=== PATIENT | female | born 1940 | race Caucasian/White ===

== ENCOUNTER 2017-12-12 16:55 | Inpatient (IN) | payer MEDICARE, OTHER ==
[~2017-12-12] VITALS: Ht 149.9 cm; Wt 49.1 kg
--- NOTE | ~2017-12-12 | PN ---
PATIENT:MARTELL SLOAN MEDICAL RECORD: [id number] LOCATION:MI[facility] Rodriguez112 ADMISSION DATE: 12/13/17 PROGRESS NOTE DATE OF SERVICE: 12/16/2017 SUBJECTIVE: The patient's case was discussed with staff. She has no new complaint. OBJECTIVE: The patient denies intent to harm herself or others. She is calmer today. She did agree to sign in voluntarily. She insists she would not hurt herself. ASSESSMENT: No change in diagnoses. PLAN: Brief supportive and educational interventions were made. The patient now says she does not want to go to a penitentiary or an assisted living center nor does she want that for her . I have explained to her that it does not look as though there any additional services that she can receive at home, but she says that she will manage somehow. I am going to reduce her dose of Klonopin to 0.25 mg 3 times daily. Her long-term prognosis is guarded. TRANSINT:[id number] Voice Confirmation ID: [id number] DOCUMENT ID: [id number] EFFIE FISH MD at 1034 CC: [id number] DICTATION DATE: 12/16/17 1407 SENIOR PROCESS ENGINEER: 12/16/17 2137 ADM IN [place] [place] [address]
--- NOTE | ~2017-12-12 | PN ---
PATIENT:MARTELL SLOAN MEDICAL RECORD: [id number] LOCATION:MIKE RamonBryan112 ADMISSION DATE: 12/13/17 PROGRESS NOTE DATE OF SERVICE: 12/14/2017 SUBJECTIVE: The patient's case was discussed with staff. She has no new complaint. OBJECTIVE: The patient denies intent to harm herself or others. She generally tolerates her medicines well. She is significantly calmer from yesterday, but still shows significant depression. ASSESSMENT: No change in diagnoses. PLAN: Adjustments will be made in her antidepressant medication. Supportive and educational interventions were made. I would like Dr. Cady Sanford to test her. She does not show significant signs of cognitive impairment, but an early dementia may well be present and a contributing factor to this and the best way to identify would be through psychometric testing. TRANSINT:[id number] Voice Confirmation ID: [id number] DOCUMENT ID: [id number] EFFIE FISH MD at 1450 CC: [id number] DICTATION DATE: 12/14/17 1025 MATCHBOOK MAKER: 12/14/17 1057 ADM IN [facility] [address] [place] [address]
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
--- NOTE | ~2017-12-12 | PN ---
PATIENT:MARTELL SLOAN MEDICAL RECORD: [id number] LOCATION:MIKE Rodriguez112 ADMISSION DATE: 12/13/17 PROGRESS NOTE DATE OF SERVICE: 12/17/2017 SUBJECTIVE: The patient's case was discussed with staff. She has no new complaint. OBJECTIVE: The patient denies intent to harm herself or others. She generally tolerates her medicines well. Eye contact is poor. Concentration is poor. ASSESSMENT: No change in diagnoses. PLAN: The patient has no thoughts of harming herself or others. She is tolerating her medicines well. I anticipate that she can be transitioned out of the hospital soon. TRANSINT:[id number] Voice Confirmation ID: [id number] DOCUMENT ID: [id number] EFFIE FISH MD at 1354 CC: [id number] DICTATION DATE: 12/17/17 1045 CLINICAL FACULTY: 12/17/17 1241 ADM IN [address] [id number] [place] [address]
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
--- NOTE | ~2017-12-12 | PN ---
PATIENT:MARTELL SLOAN MEDICAL RECORD: [id number] LOCATION:MIKE Rodriguez112 ADMISSION DATE: 12/13/17 PROGRESS NOTE DATE OF SERVICE: 12/19/2017 SUBJECTIVE: The patient's case was discussed with staff. She has no new complaint. OBJECTIVE: The patient is in good behavioral control with limited insight about her condition. She tolerates her medicines well. ASSESSMENT: No change in diagnoses. PLAN: The patient will be transitioned out of the hospital soon. Her long-term prognosis is guarded. She is going to be referred to the outpatient behavioral program at [facility]. TRANSINT:[id number] Voice Confirmation ID: [id number] DOCUMENT ID: [id number] EFFIE FISH MD at 1659 CC: [id number] DICTATION DATE: 12/19/17 1432 SHOP SUPERVISOR: 12/19/17 1441 DIS IN 12/20/17 [id number] [place] [address]
--- NOTE | ~2017-12-12 | PN ---
PATIENT:MARTELL SLOAN MEDICAL RECORD: [id number] LOCATION:MIKE Rodriguez112 ADMISSION DATE: 12/13/17 PROGRESS NOTE DATE OF SERVICE: 12/15/2017 SUBJECTIVE: The patient's case was discussed with staff. She has no new complaint. OBJECTIVE: The patient is in good behavioral control, but tells me that she does not want to go to court Monday and that she will sign in voluntarily. I make it clear to her that the court proceedings can be reinstituted at any time and that it would be my estimation that she would be here 5 or 6 days more. She is agreeable to this, although after talking about it she starts to cry. She is not eating very well. I have discussed lack of appetite with her. She says she will try to do better, but it may be necessary to prescribe Colace. In addition to this, she is denying any intent to harm herself or others and is very much interested in going to assisted living with her . ASSESSMENT: Current diagnoses plus Alzheimer dementia. PLAN: The patient was tested by Dr. Cady Sanford and actually scored worse than I would have anticipated. Her score was 21/30. Given her physical limitations, the impairment that she has cognitively and the fact that she has been asked to care for her disabled who has dementia, I think it is completely inappropriate for her to be at home with her or better stated I think it is inappropriate for her to not have some kind of assistance. It would appear the least restrictive environment would be assisted living and even though she and the do not get along and argue and bicker quite a bit, they have been for 60 years and she says she wants to stay with him and as far as I know he still wants to stay with her. Assisted living would seem like a reasonable option for them at this time and she is agreeable to it. Based on my interactions with her and the testing, I do indeed think she has the dementia and I am going to start her on Aricept. TRANSINT:[id number] Voice Confirmation ID: [id number] DOCUMENT ID: [id number] EFFIE FISH MD at 1008 CC: [id number] DICTATION DATE: 12/15/17 1514 VIDEO PRESENTATION OPERATOR: 12/15/17 1541 ADM IN [facility] [address] [place] [address]
[2017-12-12] MEDS ORDERED: CELEXA20 MG PO (17:26)
[2017-12-12] MEDS ORDERED: ATIVAN2 MG PO (17:26)
[2017-12-12] MEDS ORDERED: TRAZODONE HCL50 MG PO (17:26)
[2017-12-12] MEDS ORDERED: NORVASC5 MG PO (17:27)
[2017-12-12 21:30] LABS: BASOPHILS 0.6 % (0-2); EOSINOPHILS 4.3 % (0-7); HEMATOCRIT 35.3 % (36.0-48.0); HEMOGLOBIN 11.6 g/dL (12-16); IMMATURE GRANULOCYTES 0.2 % (0-5); LYMPHOCYTES 25.5 % (15-50); MCHC 32.9 g/dL (31.0-37.0); MCV 88.3 fL (80.0-100.0); MEAN PLATELET VOLUME 10.3 fL (7.4-10.4); MONOCYTES 9.8 % (2-11); NEUTROPHILS 59.6 % (40-80); PLATELET COUNT 325 10x3/uL (130-400); RDW 13.7 % (11.5-14.5); WBC 8.9 10x3/uL (4.8-10.8)
[2017-12-12 22:12] LABS: ALBUMIN 3.8 g/dL (3.4-5.0); ANION GAP 12.7 mmol/L (8-16); BILIRUBIN - TOTAL 0.37 mg/dL (0.2-1.3); CARBON DIOXIDE 27.9 mmol/L (21.0-32.0); CREATININE - SERUM 0.8 mg/dL (0.6-1.3); POTASSIUM - SERUM 3.6 mmol/L (3.5-5.1)
[2017-12-12 22:35] LABS: APPEARANCE HAZY (CLEAR); BILIRUBIN NEGATIVE (NEGATIVE); COLOR YELLOW (YELLOW); GLUCOSE NEGATIVE (NEGATIVE); KETONE NEGATIVE (NEGATIVE); NITRITE NEGATIVE (NEGATIVE); PROTEIN TRACE mg/dL (NEGATIVE); SPECIFIC GRAVITY 1.025 (1.005-1.020); UROBILINOGEN NORMAL (NORMAL)
[2017-12-12 22:40] LABS: BACTERIA MANY /hpf (NONE SEEN); EPITHELIAL CELLS 0-5 /hpf (0-5); RED CELLS - URINE 25-50 /hpf (0-5); WHITE CELLS - URINE 25-50 /hpf (0-5)
[2017-12-12 22:53] LABS: UDS - AMPHET NEGATIVE QUAL (NEGATIVE); UDS - BARB NEGATIVE QUAL (NEGATIVE); UDS - BENZO NEGATIVE QUAL (NEGATIVE); UDS - COCAINE NEGATIVE QUAL (NEGATIVE); UDS - OPIATE NEGATIVE QUAL (NEGATIVE); UDS - PCP NEGATIVE QUAL (NEGATIVE); UDS - THC NEGATIVE QUAL (NEGATIVE)
[2017-12-13] MEDS ORDERED: TESSALON PERLE100 MG PO (01:32)
[2017-12-13 05:28] VITALS: BP 167/77
[2017-12-13 06:20] VITALS: BP 167/77; BMI 21.8
[2017-12-13 07:45] LABS: CHOL - HDL RATIO 2.7 ratio (2.3-4.1); LDL-HDL RATIO 1.6 ratio (1.5-3.5)
[2017-12-13 10:56] VITALS: BP 138/74
[2017-12-13 11:01] VITALS: BP 124/78
[2017-12-13 13:43] VITALS: BMI 21.8
[2017-12-13] MEDS ORDERED: BENZONATATE200 MG PO (17:04)
[2017-12-13 20:25] VITALS: BP 114/64
[2017-12-14 07:32] LABS: RAPID PLASMA REAGIN Non Reactive (Non Reactive)
[2017-12-14 08:24] LABS: FOLATE (FOLIC ACID) - SERUM 9.7 ng/mL (>3.0)
[2017-12-14 09:19] LABS: VITAMIN D 25 HYDROXY 22.3 ng/mL (30.0-100.0)
[2017-12-14 09:45] VITALS: BP 131/69
[2017-12-14 19:56] VITALS: BP 143/80
[2017-12-15 09:42] VITALS: BP 104/70
[2017-12-15 10:40] VITALS: Ht 149.9 cm; Wt 49.1 kg
[2017-12-15 19:39] VITALS: BP 135/81
[2017-12-16 08:00] VITALS: BP 113/68
[2017-12-16 09:56] VITALS: BP 154/64
[2017-12-16 20:00] VITALS: BP 113/68
[2017-12-17 10:13] VITALS: BP 137/67
[2017-12-17 20:41] VITALS: BP 142/94
[2017-12-18 08:00] VITALS: BP 141/74
[2017-12-18 21:06] VITALS: BP 153/78
[2017-12-19 08:12] VITALS: BP 151/83
[2017-12-19] MEDS ORDERED: ARICEPT5 MG PO (14:33)
[2017-12-19] MEDS ORDERED: LIDODERM 5 %1 PATCH TRANSDERM (14:34)
[2017-12-19] MEDS ORDERED: LEXAPRO10 MG PO (14:34)
[2017-12-19] MEDS ORDERED: FLORAJEN3 CAPS460 MG PO (14:34)
[2017-12-19 20:41] VITALS: BP 160/89
[2017-12-20 08:19] VITALS: BP 154/91
== END 2017-12-20 11:34 | disposition home or self-care (01) | DRG 885 ==
LOC: D.ER 16:55 → D.PSYCH 12-13 00:32
PROVIDERS: Family Medicine; Psychiatry & Neurology Psychiatry
DX: F33.1 Major depressive disorder, recurrent, moderate (principal); R45.851 Suicidal ideations; N39.0 Urinary tract infection, site not specified; I25.10 Atherosclerotic heart disease of native coronary artery without angina pectoris; I11.0 Hypertensive heart disease with heart failure; I50.9 Heart failure, unspecified; G89.29 Other chronic pain; M54.9 Dorsalgia, unspecified; M06.9 Rheumatoid arthritis, unspecified; I48.2 Chronic atrial fibrillation; E78.5 Hyperlipidemia, unspecified

== ENCOUNTER 2018-09-24 08:40 | Day surgery (SDC) | payer MEDICARE, OTHER ==
[~2018-09-24] VITALS: Ht 149.9 cm; Wt 50.0 kg
[~2018-09-24 08:40] MED LIST: ARICEPT5 MG PO; ATIVAN2 MG PO; BENZONATATE200 MG PO; CELEXA20 MG PO; FLORAJEN3 CAPS460 MG PO; LEXAPRO10 MG PO; LIDODERM 5 %1 PATCH TRANSDERM; NORVASC5 MG PO; TESSALON PERLE100 MG PO; TRAZODONE HCL50 MG PO
[2018-09-24 09:43] LABS: HEMATOCRIT 33.5 % (36.0-48.0); HEMOGLOBIN 9.6 g/dL (12-16); MCH 20.2 pg (26.0-34.0); MCHC 28.7 g/dL (31.0-37.0); MCV 70.5 fL (80.0-100.0); PLATELET COUNT 290 10x3/uL (130-400); RBC 4.75 10x6/uL (4.00-5.40); WBC 8.6 10x3/uL (4.8-10.8)
[2018-09-24] MEDS ORDERED: GABAPENTIN100 MG PO (09:43)
[2018-09-24] MEDS ORDERED: FUROSEMIDE20 MG PO (09:44)
[2018-09-24 09:57] VITALS: BP 152/77; Ht 149.9 cm; Wt 50.0 kg
[2018-09-24 10:16] LABS: ANISOCYTOSIS OCC; HYPOCHROMASIA 1+; PLATELET ESTIMATE NORMAL; POIKILOCYTOSIS OCC; ROULEAUX OCC; SMUDGE CELLS OCC
--- NOTE | 2018-09-24 16:44 | OP ---
PATIENT NAME: MARTELL SLOAN MEDICAL RECORD: [id number] :36 LOCATION:DBryanOPS ADMISSION DATE: SURGEON: AIRAM CASTILLO DO DATE OF OPERATION: 09/24/2018 PROCEDURE: Colonoscopy with endoscopic mucosal resection, polypectomy. INDICATIONS FOR PROCEDURE: Iron deficiency anemia, change in bowel habits with chronic constipation, hematochezia. SCOPE: Olympus video pediatric colonoscope. MEDICATIONS: Propofol 490 mg IV per anesthesia. WITHDRAWAL TIME: 48 minutes. ESTIMATED BLOOD LOSS: Minimal. COMPLICATIONS: None. FINDINGS: Informed consent was given. The patient was made comfortable with the above medication. After reaching an adequate level of sedation by slow IV push, the patient was placed on her left side. A digital rectal examination was performed and was normal. The endoscope was advanced under direct visualization through the rectum to the cecum, confirmed by the presence of the appendiceal orifice and ileocecal valve. The endoscope was slowly withdrawn and mucosa was carefully examined. The prep quality was good. There was evidence of moderate diverticulosis involving the descending and sigmoid colon. There was a single, large polyp that measured approximately 2 to 2.5 cm in diameter located in the rectum (approximately 5-7 cm from the anal verge). It was a mixed polyp with areas that were raised and sessile, and other areas that were flat or depressed. Endoscopic mucosal resection technique was utilized using Eleview to lift the polyp off the wall of the colon successfully. Following this, a hot snare was used to resect the polyp in piecemeal fashion. Hot forceps were then used to clean any residual appearing tissue and remove what could be seen. The perimeter of the polyp site was burned and 3 endoclips were used to position the tissue closed to lower her risk of complications post discharge. Retroflexion was performed in the rectum with visualization of grade I internal hemorrhoids. The patient did also have some external hemorrhoids on digital exam. The endoscope was completely withdrawn from the patient. The patient tolerated the procedure well and there were no complications. IMPRESSION: 1. Moderate diverticulosis of the descending sigmoid colon. 2. A single large polyp as described above, removed using EMR technique and endoclipped times 3. 3. Internal and external hemorrhoids without active bleeding. PLAN AND RECOMMENDATIONS: 1. Discharge home when recovery parameters are met. 2. Follow up biopsy specimen results. 3. High fiber diet. 4. Continue current medications. 5. I would recommend a repeat in 3-6 months to further clean up any residual OPERATIVE REPORT [id number] SHAYLEE SLOANEEN A polypoid tissue if present and to take more biopsies. The patient has stated that she will not undergo another colonoscopy, but this would be my recommendation. TRANSINT:[id number] Voice Confirmation ID: [id number] DOCUMENT ID: [id number] AIRAM CASTILLO DO at 1644 CC: [id number] DICTATION DATE: 09/24/18 1122 BOX TOE MAKER: 09/24/18 1338 [facility] 09/24/18 [facility] [address] [place] [address]
== END 2018-09-24 12:55 | disposition home or self-care (01) ==
LOC: D.OPS 08:40
PROVIDERS: Anesthesiology; ATTEND Internal Medicine Gastroenterology
DX: K57.30 Diverticulosis of large intestine without perforation or abscess without bleeding (principal); D12.8 Benign neoplasm of rectum; K64.0 First degree hemorrhoids; K64.4 Residual hemorrhoidal skin tags; K59.09 Other constipation; Z01.812 Encounter for preprocedural laboratory examination

== ENCOUNTER 2018-12-24 07:58 | Day surgery (SDC) | payer MEDICARE, OTHER ==
[~2018-12-24] VITALS: Ht 149.9 cm; Wt 50.0 kg
[~2018-12-24 07:58] MED LIST changes: +FUROSEMIDE20 MG PO; +GABAPENTIN100 MG PO
[2018-12-24 08:23] LABS: BASOPHILS 0.7 % (0-2); EOSINOPHILS 4.5 % (0-7); HEMATOCRIT 36.1 % (36.0-48.0); HEMOGLOBIN 12.1 g/dL (12-16); IMMATURE GRANULOCYTES 0.1 % (0-5); MCH 29.2 pg (26.0-34.0); MCHC 33.5 g/dL (31.0-37.0); MCV 87.2 fL (80.0-100.0); MEAN PLATELET VOLUME 9.4 fL (7.4-10.4); MONOCYTES 12.1 % (2-11); NEUTROPHILS 63.6 % (40-80); PLATELET COUNT 285 10x3/uL (130-400); RBC 4.14 10x6/uL (4.00-5.40); WBC 7.4 10x3/uL (4.8-10.8)
[2018-12-24 08:37] LABS: ANION GAP 14.1 mmol/L (8-16); CALCIUM 9.4 mg/dL (8.5-10.1); CARBON DIOXIDE 27.3 mmol/L (21.0-32.0); CREATININE - SERUM 0.8 mg/dL (0.6-1.3); POTASSIUM - SERUM 3.4 mmol/L (3.5-5.1)
[2018-12-24 09:06] VITALS: BP 173/88; Ht 149.9 cm; Wt 50.0 kg
--- NOTE | 2018-12-24 10:57 | NUR ---
DC INSTRUCTIONS GIVEN TO PT/FAMILY. STATE UNDERSTANDING. DC'D IV CATH FULLY INTACT.
--- NOTE | 2018-12-24 11:19 | NUR ---
PT LEFT UNIT VIA WC AT 1114
--- NOTE | 2018-12-25 15:18 | OP ---
PATIENT NAME: MARTELL SLOAN MEDICAL RECORD: [id number] :36 LOCATION:DLIZBETH ADMISSION DATE: SURGEON: AIRAM CASTILLO DO DATE OF OPERATION: 12/24/2018 PROCEDURE: Flexible sigmoidoscopy with biopsies. INDICATIONS FOR PROCEDURE: Reevaluation of a tubulovillous adenoma in the rectum. The patient's last colonoscopy was approximately 3 months ago. SCOPE: Olympus video pediatric colonoscope. MEDICATIONS: Propofol 150 mg IV per anesthesia. ESTIMATED BLOOD LOSS: Minimal. COMPLICATIONS: None. FINDINGS: Informed consent was given. The patient was made comfortable with the above medication. After reaching an adequate level of sedation by slow IV push, the patient was placed on her left side. A digital rectal examination was performed and was normal. The endoscope was then advanced under direct visualization through the rectum to the descending colon. The endoscope was slowly withdrawn and the mucosa was carefully examined. Prep quality was poor. The patient did have mild diverticulosis involving the descending and sigmoid colon. There were no polyps visualized. The previous polyp site was located in the rectum. There was still a single endoclip connected to that tissue. There was no residual polypoid tissue. There did appear to be some granulation reaction at the site of the tip of the endoclip that is still present. Two cold forceps biopsies were taken from that site. Retroflexion was performed in the rectum with visualization of grade I internal hemorrhoids without active bleeding. The endoscope was withdrawn from the patient. The patient tolerated the procedure well and there were no complications. IMPRESSION: 1. 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 Biopsies taken, but felt to be granulation tissue related to endoclip, which is still in place. 2. Grade I internal hemorrhoids without bleeding. 3. Mild diverticulosis of the descending and sigmoid colon. 4. Poor prep. PLAN AND RECOMMENDATIONS: 1. Discharge home when recovery parameters are met. 2. Follow up biopsy specimen results. 3. High fiber diet. 4. Continue current medications. 5. No further colonoscopies are necessary based on the patient's age, unless symptoms warrant evaluation. TRANSINT:[id number] Voice Confirmation ID: [id number] DOCUMENT ID: [id number] OPERATIVE REPORT [id number] MARTELL SLOAN AIRAM CASTILLO DO at 9130 CC: [id number] DICTATION DATE: 12/24/18 1016 DRY WALL INSTALLATIONS MECHANIC: 12/24/18 1305 [facility] 12/24/18 [place] [id number] [place] [id number]
== END 2018-12-24 11:19 | disposition home or self-care (01) ==
LOC: D.OPS 07:58
PROVIDERS: Anesthesiology; ATTEND Internal Medicine Gastroenterology
DX: D12.8 Benign neoplasm of rectum (principal); K64.0 First degree hemorrhoids; K57.30 Diverticulosis of large intestine without perforation or abscess without bleeding; Z01.812 Encounter for preprocedural laboratory examination